=== PATIENT | female | born 2000 | race Caucasian/White ===

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

== ENCOUNTER 2023-11-17 02:30 | Inpatient (IN) ==
[2023-11-17] MEDS ORDERED: CALCIUM CARBONATE 500 MG CHEWABLE TAB PO PRN (03:22)
[2023-11-17] MEDS ORDERED: LIDOCAINE 1% LOCAL 20 ML VIAL INFIL PRN (03:22)
--- NOTE | 2023-11-17 03:24 | History & Physical Report ---
Date of Service November 17, 2023 Assessment & Plan (1) Normal labor: Plan admit, iv labs. plan arom, pt considering epidural for pain mgmt. if so, can arom after epidural in place. fhts categ 1. History of Present Illness Chief Complaint: labor Primary Care Provider: CHRISTOPHE PCP 23yo at 40+wks egdavid presents to LD with regular ctx. On arrival cx check by nursing /-2 with regular ctx. No rom, no vb. +FM. PNC c/b 1. CT in early preg, treated, 36wk screen neg PNL rhpos, ri, gbs neg OBH: g1 GYNH: ct as above. Allergies Allergy/AdvReac Type Severity Reaction Status Date / Time No Known Drug Allergies Allergy Verified 11/11/23 10:39 Home Medications Medication Instructions Recorded Confirmed Type prenat.vits,willie,nnk-sdpx-cezfy tab PO 03/30/23 11/11/23 History Patient History Medical History (Updated 11/17/23 @ 03:26 by Jalyn Durant MD, FACOG) No pertinent past medical history Surgical History No pertinent past surgical history Family History Other No pertinent family history Denies family history of Ovarian cancer Breast cancer Colorectal cancer Social History (Updated 03/30/23 @ 13:41 by Ursula Stevens) Smoking Status: Never smoker Do You Dip or Chew Tobacco: No; Hx Alcohol Use: No Hx Substance Use: No Preferred Language: [place] Communication Ability: Effective Compliance Aide Required: No Beliefs That Will Affect Care: None marital status: Single marital status details: Navjot (21) [phone] Current Living Situation: Spouse Current Living Situation Comment: Nav[employer]ot current occupational status: employed 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 Other Information That Helps Us Care for You: No Feels Safe at Home: Yes Safety Concerns: Feels Safe At This Time Assistive Devices: None Review of Systems as per Subjective / HPI Physical Exam Constitutional: WD/WN, vitals as above Genitourinary: Manual OB Exam: + cervical dilation (per nurse) 4 cm OB Exam Monitor Tracing: + external FHT monitor used, + external uterine monitor used, + category I and + normal FHT variability Results & Data Vital Signs (Past 12 Hours) Vital Signs Temp Pulse Resp BP 11/17/23 02:55 74 122/76 11/17/23 02:46 98.2 F 18 Coding Level of Care Code None Diagnoses Normal labor O80; Z37.9
[2023-11-17] MEDS: LACTATED RINGER'S 1,000 ML IV PRN (03:47)
[2023-11-17 03:57] LABS: Hematocrit (blood only) 34.9 % (37.0-47.0); Hemoglobin 12.1 g/dl (12.0-16.0); Mean Corpuscular Hemoglobin 30.7 pg (25.0-34.0); Mean Corpuscular Hgb Conc 34.7 g/dL (32.0-36.0); Mean Corpuscular Volume 88.6 fL (80.0-100.0); Mean Platelet Volume 10.3 fL (9.4-12.4); Platelet Count 196 K/uL (130-400); RDW Coefficient of Variation 11.9 % (11.5-14.5); RDW Standard Deviation 38.5 fL (36.4-46.3); Red Blood Count 3.94 M/uL (4.20-5.40)
[2023-11-17] MEDS: BUPIVACAINE 0.25% PF 30 ML VIAL ONE (04:50)
[2023-11-17] MEDS: LIDOCAINE 2%/EPINEPHRINE 1:200,000 20 ML PF ONE (04:50)
[2023-11-17] MEDS: SODIUM CHLORIDE 0.9% PF INJ 10 ML VIAL ONE (04:50)
[2023-11-17] MEDS: fentANYL 2 MCG/ML BUPIVacaine 0.125%-NSS 100ML BAG ONE (04:50)
[2023-11-17] MEDS ORDERED: NALOXONE HCL 0.4 MG/1 ML VIAL/CARP IV PRN (04:55)
[2023-11-17] MEDS ORDERED: BUPIVACAINE 0.25% PF 30 ML VIAL EPI STA (04:55)
[2023-11-17] MEDS ORDERED: ePHEDrine sulfate 50 MG/ML AMP IV PRN (04:55)
[2023-11-17] MEDS ORDERED: LIDOCAINE 2% MPF LOCAL 5 ML VIAL EPI PRN (04:55)
[2023-11-17] MEDS ORDERED: BUPIVACAINE 0.25% PF 30 ML VIAL EPI PRN (04:55)
[2023-11-17] MEDS ORDERED: fentaNYL citrate PF 100 MCG/2 ML VIAL EPI PRN (04:55)
[2023-11-17] MEDS ORDERED: ONDANSETRON INJ 2 MG/ML 2 ML VIAL IV PRN (04:55)
[2023-11-17] MEDS ORDERED: diphenhydrAMINE 50 MG/ML VIAL IV PRN (04:55)
[2023-11-17] MEDS ORDERED: NALBUPHINE HCL INJ 10 MG/ML AMP IV PRN (04:55)
[2023-11-17] MEDS ORDERED: LIDOCAINE 2%/EPINEPHRINE 1:200,000 20 ML PF EPI STA (04:55)
[2023-11-17] MEDS ORDERED: PROMETHAZINE 6.25 MG/50.25 ML BAG IV PRN (04:55)
[2023-11-17] MEDS ORDERED: SODIUM CHLORIDE 0.9% PF INJ 10 ML VIAL EPI STA (04:55)
[2023-11-17] MEDS ORDERED: SODIUM CHLORIDE 0.9% PF INJ 10 ML VIAL EPI PRN (04:55)
[2023-11-17] MEDS ORDERED: ROPIVACAINE 0.5% PF 5 MG/ML 20 ML VIAL EPI PRN (04:55)
[2023-11-17] MEDS ORDERED: NALOXONE HCL 1 MG in SODIUM CHLORIDE 0.9% 1,000 ML IV PRN (04:55)
[2023-11-17] MEDS ORDERED: fentANYL 2 MCG/ML BUPIVacaine 0.125%-NSS 100ML BAG EPI PRN (04:55)
[2023-11-17] MEDS ORDERED: fentaNYL citrate PF 100 MCG/2 ML VIAL EPI STA (04:55)
--- NOTE | 2023-11-17 04:55 | Anesthesiology Consultation ---
Date of Service November 17, 2023 Assessment & Plan Chart Review Chart Review: Patient NOT seen in Pre Admission Testing and Acceptable Risk for Labor Epidural Consults Requested none ASA ASA2 Proposed Anesthesia Anesthesia Type: Labor Epidural Risk / Benefits Reviewed With: PT / POA / Parent / Guardian, Accepts Plan and Informed Consent Obtained History Height/Weight Height: 5 ft 7 in Weight: 73.482 kg Allergies Allergy/AdvReac Type Severity Reaction Status Date / Time No Known Drug Allergies Allergy Verified 11/11/23 10:39 Medications Home Medications Medication Instructions Recorded Confirmed Last Taken vits no.124-ferrous fum 1 tab PO DAILY 11/17/23 11/17/23 11/16/23 27 mg iron-folic acid 800 mcg tablet ( Vitamin) Active Medications Generic Name Dose Route Start Last Admin Trade Name Freq PRN Reason Stop Dose Admin Lactated Ringer's 1,000 mls @ 125 mls/hr 11/17/23 03:22 11/17/23 04:51 Lr IV 11/19/23 03:21 125 mls/hr .Q8H PRN Administration L&D Protocol Protocol Past Medical History Medical History No pertinent past medical history Exercise / Class Metabolic Activity II 4-5 Yardwork/Stairs/Walk up hill Past Family History Family History Other No pertinent family history Denies family history of Ovarian cancer Breast cancer Colorectal cancer Past Surgical History Surgical History No pertinent past surgical history Past Anesthesia History No Hx of Anesthesia Complications and No Family Hx of Anesthesia Complications History of PONV No Hx of PONV and No Hx of Motion Sickness Social History Smoking Status: Never smoker Do You Dip or Chew Tobacco: No Hx Alcohol Use: No Hx Substance Use: No Physical Exam Vital Signs Last Vital Signs Temp 36.8 C 11/17/23 02:46 Pulse 68 11/17/23 04:53 Resp 18 11/17/23 02:46 BP 125/75 11/17/23 04:53 Pulse Ox 100 11/17/23 04:53 ENMT Mouth: no dentition abnormality Thyromental Distance: > or= 3.5 Finger Breadths Mallampati Class: II Neck normal visual inspection Respiratory normal respiratory effort Auscultation: lungs clear to auscultation bilaterally Cardiovascular Rate/Rhythm: regular rate and regular rhythm Psychiatric Orientation: alert Testing Laboratory Results 11/17/23 03:43
[2023-11-17] MEDS: fentaNYL citrate PF 100 MCG/2 ML VIAL ONE (05:13)
[2023-11-17] MEDS: ePHEDrine sulfate 50 MG/ML AMP ONE (05:13)
--- NOTE | 2023-11-17 08:05 | Labor Progress Brief Note ---
Date of Service November 17, 2023 Subjective comfortable Assessment & Plan (1) Normal labor: Plan good cx change. will plan 2nd stage soon. fhts categ 2. Admission and Anticipated Discharge Date Admission Date: November 17, 2023 Physical Exam Constitutional: WD/WN, vitals as above Genitourinary: Manual OB Exam: + cervical dilation (8-9 cm per nurse) OB Exam Monitor Tracing: + external FHT monitor used, + external uterine monitor used (q1-3), + category I, + normal FHT variability and + early decelerations present Results & Data Vital Signs (Past 12 Hours) Vital Signs Temp Pulse Resp BP Pulse Ox 11/17/23 08:00 75 148/80 H 11/17/23 07:58 88 100 11/17/23 07:53 90 100 11/17/23 07:48 90 100 11/17/23 07:46 80 94/54 L 11/17/23 07:43 87 99 11/17/23 07:38 86 100 11/17/23 07:33 92 H 100 11/17/23 07:30 88 105/61 11/17/23 07:28 114 H 100 11/17/23 07:23 84 100 11/17/23 07:18 86 100 11/17/23 07:15 98.4 F 81 20 96/59 L 11/17/23 07:13 82 100 11/17/23 07:08 80 100 11/17/23 07:03 86 99 11/17/23 07:00 88 133/80 11/17/23 06:58 75 100 11/17/23 06:53 88 100 11/17/23 06:48 71 100 11/17/23 06:45 75 115/72 11/17/23 06:43 76 100 11/17/23 06:38 81 100 11/17/23 06:33 82 100 11/17/23 06:30 79 116/68 11/17/23 06:28 75 100 11/17/23 06:23 78 100 11/17/23 06:18 75 100 11/17/23 06:16 81 124/73 11/17/23 06:13 76 100 11/17/23 06:08 81 100 11/17/23 06:03 76 100 11/17/23 05:59 78 118/73 11/17/23 05:58 76 100 11/17/23 05:53 78 100 11/17/23 05:48 79 100 11/17/23 05:45 77 122/74 11/17/23 05:43 72 100 11/17/23 05:40 98.2 F 18 11/17/23 05:38 77 100 11/17/23 05:33 73 100 11/17/23 05:30 72 120/77 11/17/23 05:28 71 100 11/17/23 05:23 69 100 11/17/23 05:18 77 100 11/17/23 05:16 91 11/17/23 05:16 82 11/17/23 05:16 78 126/80 11/17/23 05:13 75 100 11/17/23 05:08 76 100 11/17/23 05:04 75 93 11/17/23 05:03 65 100 11/17/23 04:58 81 119/73 100 11/17/23 04:55 85 120/77 11/17/23 04:53 68 125/75 100 11/17/23 04:52 74 126/76 11/17/23 04:50 85 129/78 11/17/23 04:48 100 11/17/23 04:48 76 11/17/23 04:48 75 137/76 11/17/23 04:43 92 H 100 11/17/23 04:42 93 H 84 L 11/17/23 04:38 83 99 11/17/23 04:33 100 11/17/23 04:33 77 11/17/23 04:33 108 H 151/89 H 11/17/23 04:28 106 H 100 11/17/23 04:23 84 99 11/17/23 04:21 102 H 88 L 11/17/23 04:18 71 100 11/17/23 04:13 80 100 11/17/23 04:08 71 100 11/17/23 04:03 77 99 11/17/23 03:58 67 100 11/17/23 03:53 79 100 11/17/23 02:55 74 122/76 11/17/23 02:46 98.2 F 18 Coding Level of Care Code None Diagnoses Normal labor O80; Z37.9
--- NOTE | 2023-11-17 08:11 | Labor Progress Brief Note ---
Date of Service November 17, 2023 Subjective comfortable. has deep variables Assessment & Plan (1) Normal labor: Plan begin 2nd stage. fhts categ 2. Admission and Anticipated Discharge Date Admission Date: November 17, 2023 Physical Exam Constitutional: WD/WN, vitals as above Genitourinary: Manual OB Exam: + cervical dilation 10 cm, + cervical effacement 100% and + station + 2 OB Exam Monitor Tracing: + external FHT monitor used, + external uterine monitor used, + category II, + normal FHT variability and + variable decelerations Results & Data Vital Signs (Past 12 Hours) Vital Signs Temp Pulse Resp BP Pulse Ox 11/17/23 08:08 97 H 100 11/17/23 08:03 77 100 11/17/23 08:00 75 148/80 H 11/17/23 07:58 88 100 11/17/23 07:53 90 100 11/17/23 07:48 90 100 11/17/23 07:46 80 94/54 L 11/17/23 07:43 87 99 11/17/23 07:38 86 100 11/17/23 07:33 92 H 100 11/17/23 07:30 88 105/61 11/17/23 07:28 114 H 100 11/17/23 07:23 84 100 11/17/23 07:18 86 100 11/17/23 07:15 98.4 F 81 20 96/59 L 11/17/23 07:13 82 100 11/17/23 07:08 80 100 11/17/23 07:03 86 99 11/17/23 07:00 88 133/80 11/17/23 06:58 75 100 11/17/23 06:53 88 100 11/17/23 06:48 71 100 11/17/23 06:45 75 115/72 11/17/23 06:43 76 100 11/17/23 06:38 81 100 11/17/23 06:33 82 100 11/17/23 06:30 79 116/68 11/17/23 06:28 75 100 11/17/23 06:23 78 100 11/17/23 06:18 75 100 11/17/23 06:16 81 124/73 11/17/23 06:13 76 100 11/17/23 06:08 81 100 11/17/23 06:03 76 100 11/17/23 05:59 78 118/73 11/17/23 05:58 76 100 11/17/23 05:53 78 100 11/17/23 05:48 79 100 11/17/23 05:45 77 122/74 11/17/23 05:43 72 100 11/17/23 05:40 98.2 F 18 11/17/23 05:38 77 100 11/17/23 05:33 73 100 11/17/23 05:30 72 120/77 11/17/23 05:28 71 100 11/17/23 05:23 69 100 11/17/23 05:18 77 100 11/17/23 05:16 91 11/17/23 05:16 82 11/17/23 05:16 78 126/80 11/17/23 05:13 75 100 11/17/23 05:08 76 100 11/17/23 05:04 75 93 11/17/23 05:03 65 100 11/17/23 04:58 81 119/73 100 11/17/23 04:55 85 120/77 11/17/23 04:53 68 125/75 100 11/17/23 04:52 74 126/76 11/17/23 04:50 85 129/78 11/17/23 04:48 100 11/17/23 04:48 76 11/17/23 04:48 75 137/76 11/17/23 04:43 92 H 100 11/17/23 04:42 93 H 84 L 11/17/23 04:38 83 99 11/17/23 04:33 100 11/17/23 04:33 77 11/17/23 04:33 108 H 151/89 H 11/17/23 04:28 106 H 100 11/17/23 04:23 84 99 11/17/23 04:21 102 H 88 L 11/17/23 04:18 71 100 11/17/23 04:13 80 100 11/17/23 04:08 71 100 11/17/23 04:03 77 99 11/17/23 03:58 67 100 11/17/23 03:53 79 100 11/17/23 02:55 74 122/76 11/17/23 02:46 98.2 F 18 Coding Level of Care Code None Diagnoses Normal labor O80; Z37.9
[2023-11-17] MEDS: OXYTOCIN 30 UNITS/NSS 30 UNITS/500 ML BAG IV PRN (08:43)
--- NOTE | 2023-11-17 09:00 | Delivery Summary ---
Vaginal Delivery Summary Date of Service November 17, 2023 Vaginal Delivery Summary and 1st Degree LAC Vaginal Delivery Summary: Pre-delivery diagnoses: 23yo @ 40 4/7, h/o chlamydia, spontaneous labor Post-delivery diagnoses: same Procedure: spontaneous vaginal delivery Surgeon: Yamileth Baldwin DO Complications: none Findings: Viable male . Apgars: 8/9 . Weight pending, please see nursery records Estimated QBL blood loss: 317cc Description of delivery: The patient progressed to complete with epidural anesthesia. She then began to push. She spontaneously vaginally delivered a viable from the cephalic presentation. The head delivered in VIVI position. The anterior shoulder delivered, followed by the posterior shoulder, followed by the body. The baby was placed on mother's abdomen and a spontaneous cry was heard. Delayed cord clamping was employed, and the cord was doubly clamped and cut. Cord blood was obtained. The placenta was delivered spontaneously intact with a 3-vessel cord. The uterus and vagina were swept of clots and debris. IV pitocin was given. The uterus became firm. The cervix, vagina, and perineum were inspected and right vaginal and left vaginal 1st degree lacerations were noted. Repair with 3-0 Vicryl for bleeding control. Excellent hemostasis was observed. The mother and baby are recovering in stable and good condition in the room. Sponge, needle and instrument counts were correct x 2. Yamileth Baldwin DO [facility] Vaginal Delivery Charge Vaginal Delivery Codes: 40751 global code for the antepartum, delivery, and post- Delivery Type Details: and 1st Degree LAC
[2023-11-17] MEDS ORDERED: HYDROCORTISONE ACETATE 25 MG SUPP PR PRN (09:09)
[2023-11-17] MEDS ORDERED: bisacodyL 10 MG SUPP PR PRN (09:09)
[2023-11-17] MEDS ORDERED: BENZOCAINE 20% SPRY 85 APPLN/85 GM CAN EXT PRN (09:09)
[2023-11-17] MEDS ORDERED: DIPHTHER/TETAN/PERTUS Vaccine (Tdap, Adol/Adult) 0.5mL IM ONE (09:09)
[2023-11-17] MEDS ORDERED: OXYTOCIN 30 UNITS/NSS 30 UNITS/500 ML BAG IV PRN (09:09)
[2023-11-17] MEDS ORDERED: oxyCODONE/ACETAMINOPHEN 5mg/325mg TAB PO PRN (09:09)
--- NOTE | 2023-11-17 10:34 | Anesthesia Procedure Note ---
Date of Service November 17, 2023 Anesthesia Post Epidural Note Vital Signs Vital Signs: Temp Pulse Resp BP Pulse Ox 37.2 C 93 H 20 116/67 98 11/17/23 08:44 11/17/23 10:29 11/17/23 10:00 11/17/23 10:29 11/17/23 08:38 Pain Intensity Abdomen: Pain Intensity: 0 Notes Mental Status: alert / awake / arousable and participated in evaluation Nausea / Vomiting: adequately controlled Pain: adequately controlled Airway Patency, RR, SpO2: stable & adequate BP & HR: stable & adequate Hydration State: stable & adequate Neuraxial Anesthesia: was administered and sensory block is resolving Anesthetic Complications: no major complications apparent Epidural: Removed without complications and With tip intact
[2023-11-17] MEDS: IBUPROFEN 600 MG TAB PO PRN (12:21)
[2023-11-17] MEDS: DOCUSATE SODIUM 100 MG CAP PO SCH (21:37)
--- NOTE | 2023-11-18 05:51 | Obstetrical Progress Note ---
Date of Service November 18, 2023 Assessment & Plan (1) Encounter for care and examination after delivery: Plan Pt is 23 yo post- day 1 s/p at 40w2d. was uncomplicated Patient is doing well today, Hbg and vitals are stable Encourage ambulation and breast feeding Ibuprofen 600mg PRN q4h and Tylenol 600mg PRN q6H for pain control Monitor vitals Upon discharge, pt to follow up with Dr. Baldwin in 6 weeks Admission and Anticipated Discharge Date Admission Date: November 17, 2023 Supervising Physician Co-Signing Physician Notes Resident Physician Supervision Note: I interviewed and examined the patient. Discussed with Dr. Jameson and agree with findings and plan as documented in the note. Any exceptions or clarifications are listed here: PPD#1 doing well. Continue routine care. Documented By: Yamileth Baldwin, Subjective Pt is 23 yo post- day 1 s/p at 40w2d. was uncomplicated. Ambulation:In and out of room Voiding:voiding normally Passing gas: yes BM: small Diet tolerance:regular diet Lochia:bloody, no clots Feeding type: breast Current pain level: 0-3 /10 improved with ibuprofen Resting comfortably this morning in NAD. Denies GARCIA, CP, SOB, N/V/D, LE pain/swelling. Review of Systems Review of Systems: As per HPI Physical Exam Constitutional: WD/WN, vitals as above Respiratory: normal respiratory effort, lungs clear to auscultation Cardiovascular: RRR, no murmur, no edema Gastrointestinal (Abdomen): normal bowel sounds, soft, nontender, no hepatosplenomegaly Uterine fundus firm and at level of umbilicus Neurologic: PERRL, EOMI, accommodation nl, no face palsy, no dysarthria Moving all 4 extremities on command Psychiatric: A+Ox3, euthymic affect Results & Data Vital Signs (Past 12 Hours) Vital Signs Temp Pulse Resp BP Pulse Ox O2 Del Method 11/18/23 04:35 36.6 C 72 18 120/78 99 Room Air 11/18/23 01:00 36.7 C 67 16 116/73 99 Room Air 11/17/23 21:30 36.6 C 78 16 108/68 98 Room Air Resident Activity Tracking Resident Involvement: Resident Care Provided Care Provided: Adult Hospital Medicine and OB Delivery
[2023-11-18 07:03] LABS: Hemoglobin 11.1 g/dl (12.0-16.0); Mean Corpuscular Hemoglobin 30.8 pg (25.0-34.0); Mean Corpuscular Hgb Conc 33.6 g/dL (32.0-36.0); Mean Corpuscular Volume 91.7 fL (80.0-100.0); Mean Platelet Volume 10.7 fL (9.4-12.4); Platelet Count 160 K/uL (130-400); RDW Coefficient of Variation 12.2 % (11.5-14.5); RDW Standard Deviation 40.8 fL (36.4-46.3); White Blood Count 12.28 K/ul (4.8-10.8)
[2023-11-18] MEDS: PRENATAL VITAMIN 1 TAB PO SCH (08:40)
[2023-11-18] MEDS: ACETAMINOPHEN 325 MG TAB PO PRN (08:40)
[2023-11-18] MEDS: bisacodyL 5 MG TABEC PO SCH (20:43)
[2023-11-18 23:08] VITALS: TEMP 98.4
--- NOTE | 2023-11-19 05:54 | Obstetrical Progress Note ---
Date of Service November 19, 2023 Assessment & Plan (1) Encounter for care and examination after delivery: Plan Pt is 23 yo post- day 2 s/p at 40w2d. was uncomplicated Patient is doing well today, Hbg and vitals are stable Encourage ambulation and breast feeding Ibuprofen 600mg PRN q4h and Tylenol 600mg PRN q6H for pain control Monitor vitals Plan to discharge to home today Follow up with Dr. Baldwin in 6 weeks Admission and Anticipated Discharge Date Admission Date: November 17, 2023 Supervising Physician Co-Signing Physician Notes Resident Physician Supervision Note: I interviewed and examined the patient. Discussed with Dr. Jameson and agree with findings and plan as documented in the note. Any exceptions or clarifications are listed here: [None] Documented By: Helga Tapia MD, FACOG Subjective Pt is 23 yo post- day 2 s/p at 40w2d. was uncomplicated. Ambulation:In and out of room Voiding:voiding normally Passing gas: yes BM: yes Diet tolerance:regular diet Lochia:bloody, no clots Feeding type: breast Current pain level: 0-3 /10 improved with ibuprofen Resting comfortably this morning in NAD. Denies GARCIA, CP, SOB, N/V/D, LE pain/swelling. Review of Systems Review of Systems: As per HPI Physical Exam Constitutional: WD/WN, vitals as above Respiratory: normal respiratory effort, lungs clear to auscultation Cardiovascular: RRR, no murmur, no edema Gastrointestinal (Abdomen): normal bowel sounds, soft, nontender, no hepatosplenomegaly Uterine fundus is firm 1cm below umbilicus Neurologic: PERRL, EOMI, accommodation nl, no face palsy, no dysarthria Psychiatric: A+Ox3, euthymic affect Results & Data Vital Signs (Past 12 Hours) Vital Signs Temp Pulse Resp BP Pulse Ox O2 Del Method 11/18/23 23:07 36.9 C 71 16 119/71 99 Room Air 11/18/23 20:35 36.6 C 89 14 127/77 Room Air 11/18/23 19:02 36.8 C 79 18 117/77 99 Room Air Resident Activity Tracking Resident Involvement: Resident Care Provided Care Provided: Adult [facility] Medicine
[2023-11-19 06:37] LABS: Hematocrit (blood only) 36.3 % (37.0-47.0); Hemoglobin 12.3 g/dl (12.0-16.0)
[2023-11-19 08:34] VITALS: BP 118/62; PULSE 60; RESP 18; O2SAT 98
== END 2023-11-19 10:48 | disposition home or self-care (01) | DRG 807 ==
LOC: OPB 02:30 → 4S1 02:34 → 4E2 11:35